=== PATIENT | male | born 1965 | race African-American/Black ===

== ENCOUNTER 2019-01-04 10:24 | Inpatient (IN) | payer MEDICAID ==
[~2019-01-04] VITALS: Ht 177.8 cm; Wt 91.4 kg
[2019-01-04] MEDS ORDERED: VANCOMYCIN 1 G PREMIX 200 ML IV ONE (11:30)
[2019-01-04] MEDS ORDERED: LEVOFLOXACIN 750MG PREMIX 150 ML IV ONE (11:30)
[2019-01-04] MEDS ORDERED: SODIUM CHLORIDE 0.9% 1,000 ML IV ONE (11:45)
[2019-01-04 12:01] LABS: BASOPHILS % 0.8 % (0.0-2.0); EOSINOPHILS % 2.1 % (0.0-5.0); HEMATOCRIT. 32.9 % (42.0-52.0); HEMOGLOBIN. 10.7 g/dL (14.0-18.0); LYMPHOCYTES % 25.3 % (20.0-50.0); MEAN CORPUSCULAR VOLUME 67.9 fL (80.0-94.0); MEAN PLATELET VOLUME 8.5 fl (7.4-10.4); MONOCYTES % 7.7 % (2.0-8.0); NEUTROPHILS % 64.1 % (40.0-76.0); PLATELET 440 x1000/uL (130-400); RED BLOOD CELL COUNT 4.85 mill/uL (4.7-6.1); RED CELL DISTRIBUTION WIDTH 14.3 % (11.6-14.6)
[2019-01-04 12:09] LABS: PROTHROMBIN TIME 9.9 sec (9.6-11.0)
[2019-01-04 12:10] LABS: CHLORIDE 99 mEq/L (98-107)
[2019-01-04 12:15] LABS: ETHANOL BLOOD < 10 mg/dL
[2019-01-04 12:18] LABS: BETA HYDROXYBUTYRATE 0.1 mMol/L (0.0-0.3)
[2019-01-04 13:13] LABS: CLARITY URINE CLEAR (CLEAR); COLOR URINE YELLOW (YELLOW); KETONES URINE NEGATIVE (NEGATIVE); LEUKOCYTE ESTERASE URINE NEGATIVE (NEGATIVE); NITRITE URINE NEGATIVE (NEGATIVE); OCCULT BLOOD URINE NEGATIVE (NEGATIVE); PH URINE 5.5 (4.5-8.0); PROTEIN URINE 2+ (NEGATIVE); SPECIFIC GRAVITY URINE 1.032 (1.005-1.030); UROBILINOGEN URINE 0.2 E.U./dL (0.2-1.0)
[2019-01-04 13:39] LABS: *AMPHETAMINES SCREEN URINE NEGATIVE (NEGATIVE); *BARBITURATES SCREEN URINE NEGATIVE (NEGATIVE); *BENZODIAZEPINES SCREEN URINE NEGATIVE (NEGATIVE)
[2019-01-04 13:40] LABS: *COCAINE SCREEN URINE NEGATIVE (NEGATIVE); CANNABINOID URINE SCREEN NEGATIVE (NEGATIVE); METHADONE URINE SCREEN NEGATIVE (NEGATIVE); OPIATES URINE SCREEN PRESUMTIVE POSITIVE (NEGATIVE); PHENCYCLIDINE URINE SCREEN NEGATIVE (NEGATIVE)
[2019-01-04] MEDS ORDERED: SODIUM CHLORIDE 0.9% 1000ML BAG (SEPSIS BOLUS) IV ONE (14:00)
[2019-01-04] MEDS ORDERED: ACETAMINOPHEN 325MG TABLET PO PRN (18:45)
[2019-01-04] MEDS ORDERED: HYDROMORPHONE HCL/PF 2MG/ML CPJ IV PRN (18:45)
[2019-01-04] MEDS ORDERED: VANCOMYCIN 1 G PREMIX 200 ML IV SCH (18:45)
[2019-01-04 20:00] VITALS: BP 158/96
[2019-01-04] MEDS ORDERED: DEXTROSE 50% WATER 50ML SYRINGE IV PRN (20:00)
[2019-01-04] MEDS ORDERED: INSULIN LISPRO 100 UNITS/ML SUBCUT SCH (21:00)
[2019-01-04] MEDS ORDERED: BLOOD SUGAR DIAGNOSTIC STRIP TEST SCH (21:00)
[2019-01-04 21:42] VITALS: BP 158/96
[2019-01-04] MEDS ORDERED: LOSARTAN POTASSIUM 50 MG TABLET PO NR (22:00)
[2019-01-04] MEDS ORDERED: INSU100I33 SQ (22:13)
[2019-01-04] MEDS ORDERED: METF-816 PO (22:13)
[2019-01-04] MEDS: SODIUM CHLORIDE 0.9% INJ 3ML FLUSH IVF SCH (22:24)
[2019-01-04] MEDS: PIPERACILLIN/TAZ 3.375G PREMIX 50 ML IV SCH (22:25)
[2019-01-05] VITALS: BP 156/99
[2019-01-05] MEDS: VANCOMYCIN 1 G PREMIX 200 ML IV SCH ×3 (00:32→22:12)
[2019-01-05 00:34] LABS: BASOPHILS % 0.9 % (0.0-2.0); EOSINOPHILS % 1.8 % (0.0-5.0); HEMATOCRIT. 32.1 % (42.0-52.0); HEMOGLOBIN. 10.4 g/dL (14.0-18.0); LYMPHOCYTES % 26.3 % (20.0-50.0); MEAN CORPUSCULAR HEMOGLOBIN 22.1 pg (28.0-32.0); MEAN CORPUSCULAR VOLUME 68.3 fL (80.0-94.0); MEAN PLATELET VOLUME 8.7 fl (7.4-10.4); MONOCYTES % 9.5 % (2.0-8.0); NEUTROPHILS % 61.5 % (40.0-76.0); PLATELET 348 x1000/uL (130-400); RED CELL DISTRIBUTION WIDTH 14.4 % (11.6-14.6)
[2019-01-05 01:02] LABS: CHLORIDE 105 mEq/L (98-107)
[2019-01-05 04:00] VITALS: BP 148/85
[2019-01-05] MEDS: PIPERACILLIN/TAZ 3.375G PREMIX 50 ML IV SCH ×3 (05:04→21:17)
[2019-01-05] MEDS: SODIUM CHLORIDE 0.9% INJ 3ML FLUSH IVF SCH ×3 (05:04→21:17)
[2019-01-05 08:00] VITALS: BP 148/90
[2019-01-05] MEDS: BLOOD SUGAR DIAGNOSTIC STRIP TEST SCH ×4 (08:03→21:17)
[2019-01-05] MEDS: INSULIN LISPRO 100 UNITS/ML SUBCUT SCH ×4 (08:09→21:18)
[2019-01-05] MEDS: ENOXAPARIN 30MG/0.3ML SYR SUBCUT SCH ×2 (08:10→21:16)
[2019-01-05] MEDS ORDERED: LOSARTAN POTASSIUM 50 MG TABLET PO SCH (09:00)
[2019-01-05 12:00] VITALS: BP 166/93
[2019-01-05 16:00] VITALS: BP 160/93
[2019-01-05 20:00] VITALS: BP 152/87
[2019-01-05] MEDS: INSULIN GLARGINE UD 100 UNITS/ML SYR SUBCUT SCH (21:18)
[2019-01-06] VITALS: BP 141/82
[2019-01-06] MEDS: PIPERACILLIN/TAZ 3.375G PREMIX 50 ML IV SCH ×4 (03:05→21:48)
[2019-01-06 04:00] VITALS: BP 133/83
[2019-01-06] MEDS: SODIUM CHLORIDE 0.9% INJ 3ML FLUSH IVF SCH ×3 (05:26→21:48)
[2019-01-06 08:09] VITALS: BP 133/80
[2019-01-06] MEDS: BLOOD SUGAR DIAGNOSTIC STRIP TEST SCH ×4 (08:34→20:35)
[2019-01-06] MEDS: LOSARTAN POTASSIUM 100 MG TABLET PO SCH (08:38)
[2019-01-06] MEDS: ENOXAPARIN 30MG/0.3ML SYR SUBCUT SCH ×2 (08:39→20:43)
[2019-01-06] MEDS: INSULIN LISPRO 100 UNITS/ML SUBCUT SCH ×4 (08:39→20:47)
[2019-01-06 09:04] LABS: HEMATOCRIT 32.5 % (42.0-52.0); HEMOGLOBIN 10.3 g/dL (14.0-18.0); MEAN CORPUSCULAR HEMOGLOBIN 21.8 pg (28.0-32.0); MEAN CORPUSCULAR VOLUME 69.1 fL (80.0-94.0); RED BLOOD CELL COUNT 4.71 mill/uL (4.7-6.1); RED CELL DISTRIBUTION WIDTH 14.3 % (11.6-14.6)
[2019-01-06 09:30] LABS: CHLORIDE 104 mEq/L (98-107)
[2019-01-06] MEDS: INSULIN GLARGINE UD 100 UNITS/ML SYR SUBCUT SCH ×2 (10:42→21:53)
[2019-01-06 11:48] VITALS: BP 178/91
[2019-01-06] MEDS: CLONIDINE 0.1MG TABLET PO PRN (12:24)
[2019-01-06] MEDS: VANCOMYCIN 1250MG in DEXTROSE 5% WATER 250ML IV SCH ×2 (12:24→20:43)
[2019-01-06 16:10] VITALS: BP 131/82
[2019-01-06 20:00] VITALS: BP 146/87
[2019-01-07] VITALS: BP 128/76
[2019-01-07] MEDS: PIPERACILLIN/TAZ 3.375G PREMIX 50 ML IV SCH ×4 (03:21→21:15)
[2019-01-07 04:00] VITALS: BP 125/78
[2019-01-07] MEDS: SODIUM CHLORIDE 0.9% INJ 3ML FLUSH IVF SCH ×3 (06:51→18:57)
[2019-01-07] MEDS: BLOOD SUGAR DIAGNOSTIC STRIP TEST SCH ×4 (08:05→21:14)
[2019-01-07 08:10] VITALS: BP 143/90
[2019-01-07] MEDS: LOSARTAN POTASSIUM 100 MG TABLET PO SCH (08:20)
[2019-01-07] MEDS: INSULIN LISPRO 100 UNITS/ML SUBCUT SCH ×4 (08:21→21:29)
[2019-01-07] MEDS: VANCOMYCIN 1250MG in DEXTROSE 5% WATER 250ML IV SCH ×2 (08:27→21:15)
[2019-01-07] MEDS: ENOXAPARIN 30MG/0.3ML SYR SUBCUT SCH ×2 (10:45→21:00)
[2019-01-07] MEDS: INSULIN GLARGINE UD 100 UNITS/ML SYR SUBCUT SCH ×2 (11:15→21:29)
[2019-01-07 11:24] VITALS: BP 157/93
[2019-01-07 16:33] VITALS: BP 159/92
[2019-01-07 20:00] VITALS: BP 158/93
[2019-01-08] VITALS (7 sets, daily range): BP systolic 126–154; BP diastolic 67–89
[2019-01-08] MEDS: PIPERACILLIN/TAZ 3.375G PREMIX 50 ML IV SCH ×3 (04:54→18:01)
[2019-01-08] MEDS: SODIUM CHLORIDE 0.9% INJ 3ML FLUSH IVF SCH ×3 (04:55→21:59)
[2019-01-08 06:51] LABS: BASOPHILS % 0.7 % (0.0-2.0); EOSINOPHILS % 1.4 % (0.0-5.0); HEMATOCRIT. 32.5 % (42.0-52.0); HEMOGLOBIN. 10.4 g/dL (14.0-18.0); LYMPHOCYTES % 15.8 % (20.0-50.0); MEAN CORPUSCULAR VOLUME 68.5 fL (80.0-94.0); MEAN PLATELET VOLUME 8.5 fl (7.4-10.4); NEUTROPHILS % 73.1 % (40.0-76.0); PLATELET 404 x1000/uL (130-400); RED BLOOD CELL COUNT 4.74 mill/uL (4.7-6.1); RED CELL DISTRIBUTION WIDTH 14.3 % (11.6-14.6)
[2019-01-08] MEDS: ENOXAPARIN 30MG/0.3ML SYR SUBCUT SCH ×2 (09:00→21:48)
[2019-01-08] MEDS: BLOOD SUGAR DIAGNOSTIC STRIP TEST SCH ×4 (09:37→21:00)
[2019-01-08] MEDS: LOSARTAN POTASSIUM 100 MG TABLET PO SCH (09:45)
[2019-01-08] MEDS: INSULIN LISPRO 100 UNITS/ML SUBCUT SCH ×4 (09:50→21:00)
[2019-01-08] MEDS: INSULIN GLARGINE UD 100 UNITS/ML SYR SUBCUT SCH ×2 (09:50→21:57)
[2019-01-08] MEDS ORDERED: GENTAMICIN SULF 40MG/ML 2ML VIAL ONE (12:04)
[2019-01-08] MEDS ORDERED: LIDOCAINE HCL 1% 20ML VIAL (Pyxis) INJ ONE (12:04)
[2019-01-08] MEDS ORDERED: BUPIVACAINE HCL/PF 0.5% (5MG/ML) 10ML ONE (12:05)
[2019-01-08] MEDS ORDERED: BACITRACIN 50,000 UNITS/VIAL ONE ×2 (12:05→12:16)
[2019-01-08] MEDS ORDERED: NORMAL SALINE 0.9% 10 ML SYR ONE ×2 (12:05→12:16)
[2019-01-08] MEDS ORDERED: SODIUM CHLORIDE 0.9% 1,000 ML IV SCH (12:15)
[2019-01-08] MEDS ORDERED: MIDAZOLAM HCL 2 MG/2 ML VIAL ONE ×2 (14:22→14:25)
[2019-01-08] MEDS ORDERED: PROPOFOL 200MG/20ML VIAL IV ONE (14:27)
[2019-01-08] MEDS ORDERED: BACITRACIN 15GM TUBE TOP ONE (14:42)
[2019-01-08] MEDS ORDERED: LABETALOL HCL 5MG/ML VIAL 20ML IV ONE (14:43)
[2019-01-08] MEDS ORDERED: SODIUM CHLORIDE 0.9% 1,000 ML IV ONE (14:55)
[2019-01-08] MEDS ORDERED: HYDROMORPHONE HCL/PF 2MG/ML CPJ IV PRN (15:00)
[2019-01-08] MEDS ORDERED: ONDANSETRON HCL 4MG/2ML INJ IV PRN (15:00)
[2019-01-08] MEDS ORDERED: MEPERIDINE HCL/PF 25MG/ML CPJ IV PRN (15:00)
[2019-01-08] MEDS: CLONIDINE 0.1MG TABLET PO PRN (15:34)
[2019-01-08] MEDS ORDERED: LABETALOL HCL 5MG/ML VIAL 20ML IV NR (16:15)
[2019-01-08] MEDS: PIPERACILLIN/TAZ 2.25G PREMIX 50 ML IV SCH (23:49)
[2019-01-09] VITALS (7 sets, daily range): BP systolic 124–161; BP diastolic 74–95
[2019-01-09] MEDS: PIPERACILLIN/TAZ 2.25G PREMIX 50 ML IV SCH ×4 (06:20→23:53)
[2019-01-09] MEDS: SODIUM CHLORIDE 0.9% INJ 3ML FLUSH IVF SCH ×3 (06:21→21:58)
[2019-01-09 07:20] LABS: BASOPHILS % 0.5 % (0.0-2.0); EOSINOPHILS % 1.9 % (0.0-5.0); HEMATOCRIT. 29.5 % (42.0-52.0); HEMOGLOBIN. 9.5 g/dL (14.0-18.0); LYMPHOCYTES % 13.6 % (20.0-50.0); MEAN CORPUSCULAR HEMOGLOBIN 21.8 pg (28.0-32.0); MEAN CORPUSCULAR VOLUME 67.6 fL (80.0-94.0); MEAN PLATELET VOLUME 8.2 fl (7.4-10.4); MONOCYTES % 8.7 % (2.0-8.0); NEUTROPHILS % 75.3 % (40.0-76.0); PLATELET 381 x1000/uL (130-400); RED BLOOD CELL COUNT 4.37 mill/uL (4.7-6.1); RED CELL DISTRIBUTION WIDTH 14.6 % (11.6-14.6)
[2019-01-09] MEDS: INSULIN LISPRO 100 UNITS/ML SUBCUT SCH ×4 (09:00→21:00)
[2019-01-09] MEDS: INSULIN GLARGINE UD 100 UNITS/ML SYR SUBCUT SCH ×2 (09:01→21:58)
[2019-01-09] MEDS: BLOOD SUGAR DIAGNOSTIC STRIP TEST SCH ×4 (09:02→21:55)
[2019-01-09] MEDS: ENOXAPARIN 30MG/0.3ML SYR SUBCUT SCH (09:02)
[2019-01-09] MEDS: LOSARTAN POTASSIUM 100 MG TABLET PO SCH (09:02)
[2019-01-09] MEDS ORDERED: SODIUM CHLORIDE 0.9% 1,000 ML IV SCH (18:00)
[2019-01-09] MEDS: CLONIDINE 0.1MG TABLET PO PRN (18:18)
[2019-01-09] MEDS: SODIUM CHLORIDE 0.9% 1,000 ML IV SCH ×2 (19:36→23:59)
[2019-01-09] MEDS: AMLODIPINE 10MG TABLET PO SCH (19:36)
[2019-01-09] MEDS ORDERED: VANCOMYCIN 1250MG in DEXTROSE 5% WATER 250ML IV SCH (21:00)
[2019-01-10] VITALS: BP 132/83
[2019-01-10 04:00] VITALS: BP 137/80
[2019-01-10] MEDS: SODIUM CHLORIDE 0.9% INJ 3ML FLUSH IVF SCH ×3 (05:26→21:05)
[2019-01-10] MEDS: PIPERACILLIN/TAZ 2.25G PREMIX 50 ML IV SCH ×4 (05:26→23:37)
[2019-01-10] MEDS: INSULIN LISPRO 100 UNITS/ML SUBCUT SCH ×4 (06:52→20:44)
[2019-01-10] MEDS: BLOOD SUGAR DIAGNOSTIC STRIP TEST SCH ×4 (06:52→20:43)
[2019-01-10 07:11] LABS: BASOPHILS % 0.3 % (0.0-2.0); EOSINOPHILS % 2.4 % (0.0-5.0); HEMATOCRIT. 30.1 % (42.0-52.0); HEMOGLOBIN. 9.5 g/dL (14.0-18.0); LYMPHOCYTES % 10.4 % (20.0-50.0); MEAN CORPUSCULAR HEMOGLOBIN 21.5 pg (28.0-32.0); MEAN PLATELET VOLUME 8.3 fl (7.4-10.4); MONOCYTES % 9.3 % (2.0-8.0); NEUTROPHILS % 77.6 % (40.0-76.0); PLATELET 410 x1000/uL (130-400); RED BLOOD CELL COUNT 4.43 mill/uL (4.7-6.1); RED CELL DISTRIBUTION WIDTH 14.4 % (11.6-14.6)
[2019-01-10 08:00] VITALS: BP 142/86
[2019-01-10 08:22] LABS: PHOSPHORUS 3.4 mg/dL (2.5-4.9)
[2019-01-10] MEDS: AMLODIPINE 10MG TABLET PO SCH (08:38)
[2019-01-10] MEDS: ENOXAPARIN 40MG/0.4ML SYR SUBCUT SCH (08:38)
[2019-01-10] MEDS: INSULIN GLARGINE UD 100 UNITS/ML SYR SUBCUT SCH ×2 (09:58→21:06)
[2019-01-10 12:00] VITALS: BP 133/80
[2019-01-10 16:00] VITALS: BP 151/89
[2019-01-10 20:00] VITALS: BP 145/89
[2019-01-10] MEDS: SODIUM CHLORIDE 0.9% 1,000 ML IV SCH (20:43)
[2019-01-11] VITALS: BP 139/82
[2019-01-11 04:00] VITALS: BP 147/80
[2019-01-11] MEDS: SODIUM CHLORIDE 0.9% INJ 3ML FLUSH IVF SCH ×3 (05:06→21:18)
[2019-01-11] MEDS: PIPERACILLIN/TAZ 2.25G PREMIX 50 ML IV SCH ×3 (05:06→20:50)
[2019-01-11 06:19] LABS: BASOPHILS % 0.4 % (0.0-2.0); HEMATOCRIT. 31.3 % (42.0-52.0); HEMOGLOBIN. 9.9 g/dL (14.0-18.0); LYMPHOCYTES % 15.2 % (20.0-50.0); MEAN CORPUSCULAR HEMOGLOBIN 21.8 pg (28.0-32.0); MEAN CORPUSCULAR VOLUME 68.6 fL (80.0-94.0); MEAN PLATELET VOLUME 8.4 fl (7.4-10.4); MONOCYTES % 9.7 % (2.0-8.0); NEUTROPHILS % 71.7 % (40.0-76.0); PLATELET 429 x1000/uL (130-400); RED BLOOD CELL COUNT 4.57 mill/uL (4.7-6.1); RED CELL DISTRIBUTION WIDTH 14.9 % (11.6-14.6)
[2019-01-11 06:25] LABS: PHOSPHORUS 3.2 mg/dL (2.5-4.9)
[2019-01-11 08:00] VITALS: BP 174/99
[2019-01-11 08:07] LABS: *CREATININE RANDOM URINE 69.2 mg/dL (Not Estab.); MICROALBUMIN RANDOM URINE 72.3 ug/mL (Not Estab.)
[2019-01-11] MEDS: INSULIN LISPRO 100 UNITS/ML SUBCUT SCH ×4 (09:00→20:51)
[2019-01-11] MEDS: BLOOD SUGAR DIAGNOSTIC STRIP TEST SCH ×4 (09:16→20:51)
[2019-01-11] MEDS: AMLODIPINE 10MG TABLET PO SCH (09:17)
[2019-01-11] MEDS: ENOXAPARIN 40MG/0.4ML SYR SUBCUT SCH (09:17)
[2019-01-11 12:00] VITALS: BP 163/86
[2019-01-11] MEDS: SODIUM CHLORIDE 0.9% 1,000 ML IV SCH (12:48)
[2019-01-11] MEDS: INSULIN GLARGINE UD 100 UNITS/ML SYR SUBCUT SCH ×2 (12:49→21:19)
[2019-01-11 16:00] VITALS: BP 157/96
[2019-01-11] MEDS ORDERED: HYDRALAZINE HCL 50MG TABLET PO SCH (16:00)
[2019-01-11 20:00] VITALS: BP 161/98
[2019-01-11] MEDS: HYDRALAZINE HCL 100MG TABLET PO SCH (20:51)
[2019-01-12] VITALS: BP 151/92
[2019-01-12] MEDS: PIPERACILLIN/TAZ 2.25G PREMIX 50 ML IV SCH ×2 (02:37→08:44)
[2019-01-12] MEDS: SODIUM CHLORIDE 0.9% 1,000 ML IV SCH ×2 (03:35→20:52)
[2019-01-12 04:00] VITALS: BP 143/87
[2019-01-12] MEDS: SODIUM CHLORIDE 0.9% INJ 3ML FLUSH IVF SCH ×3 (05:07→22:15)
[2019-01-12 05:57] LABS: BASOPHILS % 0.6 % (0.0-2.0); EOSINOPHILS % 3.8 % (0.0-5.0); HEMATOCRIT. 30.5 % (42.0-52.0); HEMOGLOBIN. 9.7 g/dL (14.0-18.0); MEAN CORPUSCULAR HEMOGLOBIN 21.4 pg (28.0-32.0); MEAN CORPUSCULAR VOLUME 67.6 fL (80.0-94.0); MEAN PLATELET VOLUME 8.3 fl (7.4-10.4); MONOCYTES % 9.7 % (2.0-8.0); NEUTROPHILS % 76.9 % (40.0-76.0); PLATELET 401 x1000/uL (130-400); RED BLOOD CELL COUNT 4.52 mill/uL (4.7-6.1); RED CELL DISTRIBUTION WIDTH 14.7 % (11.6-14.6)
[2019-01-12 06:24] LABS: PHOSPHORUS 3.3 mg/dL (2.5-4.9)
[2019-01-12 08:00] VITALS: BP 107/103
[2019-01-12] MEDS: AMLODIPINE 10MG TABLET PO SCH ×2 (08:21→20:46)
[2019-01-12] MEDS: HYDRALAZINE HCL 100MG TABLET PO SCH ×2 (08:21→20:46)
[2019-01-12] MEDS: INSULIN LISPRO 100 UNITS/ML SUBCUT SCH ×4 (08:42→20:47)
[2019-01-12] MEDS: BLOOD SUGAR DIAGNOSTIC STRIP TEST SCH ×4 (08:42→20:47)
[2019-01-12] MEDS: ENOXAPARIN 40MG/0.4ML SYR SUBCUT SCH (08:44)
[2019-01-12] MEDS: INSULIN GLARGINE UD 100 UNITS/ML SYR SUBCUT SCH ×2 (10:26→22:16)
[2019-01-12 12:30] VITALS: BP 169/101
[2019-01-12] MEDS: CLONIDINE 0.1MG TABLET PO PRN (13:06)
[2019-01-12] MEDS ORDERED: POTASSIUM CHLORIDE 20MEQ TABLET SR PO NR (15:45)
[2019-01-12 16:00] VITALS: BP 153/96
[2019-01-12] MEDS ORDERED: TETANUS, DIPHTHERIA, PERTUSSIS VAC/PF 0.5ML (>7YR OLD) IM ONE (16:00)
[2019-01-12] MEDS: CEFTRIAXONE 2 G in DEXTROSE 5% WATER 50 ML IV SCH (17:08)
[2019-01-12 20:00] VITALS: BP 168/96
[2019-01-13] VITALS: BP 132/78
[2019-01-13 04:00] VITALS: BP 144/93
[2019-01-13] MEDS: SODIUM CHLORIDE 0.9% INJ 3ML FLUSH IVF SCH ×3 (05:58→21:49)
[2019-01-13 08:00] VITALS: BP 146/90
[2019-01-13] MEDS: BLOOD SUGAR DIAGNOSTIC STRIP TEST SCH ×4 (08:48→21:00)
[2019-01-13] MEDS: INSULIN LISPRO 100 UNITS/ML SUBCUT SCH ×4 (08:49→22:29)
[2019-01-13] MEDS: HYDRALAZINE HCL 100MG TABLET PO SCH ×2 (08:50→21:48)
[2019-01-13] MEDS: ENOXAPARIN 40MG/0.4ML SYR SUBCUT SCH (08:51)
[2019-01-13] MEDS: CEFTRIAXONE 2 G in DEXTROSE 5% WATER 50 ML IV SCH (08:51)
[2019-01-13] MEDS: AMLODIPINE 10MG TABLET PO SCH ×2 (08:51→21:49)
[2019-01-13 09:30] LABS: BASOPHILS % 0.5 % (0.0-2.0); EOSINOPHILS % 3.3 % (0.0-5.0); HEMATOCRIT. 31.2 % (42.0-52.0); LYMPHOCYTES % 7.9 % (20.0-50.0); MEAN CORPUSCULAR HEMOGLOBIN 21.8 pg (28.0-32.0); MEAN CORPUSCULAR VOLUME 67.8 fL (80.0-94.0); MEAN PLATELET VOLUME 8.3 fl (7.4-10.4); MONOCYTES % 8.5 % (2.0-8.0); NEUTROPHILS % 79.8 % (40.0-76.0); PLATELET 478 x1000/uL (130-400); RED CELL DISTRIBUTION WIDTH 14.8 % (11.6-14.6)
[2019-01-13] MEDS: INSULIN GLARGINE UD 100 UNITS/ML SYR SUBCUT SCH ×2 (10:10→22:30)
[2019-01-13 12:00] VITALS: BP 142/91
[2019-01-13] MEDS: SODIUM CHLORIDE 0.45% 1,000 ML IV SCH (12:16)
[2019-01-13 16:00] VITALS: BP 152/96
[2019-01-13 20:00] VITALS: BP 163/96
[2019-01-13] MEDS: CARVEDILOL 3.125 MG TABLET PO SCH (21:48)
[2019-01-14] VITALS: BP 126/84
[2019-01-14 04:00] VITALS: BP 134/80
[2019-01-14] MEDS: SODIUM CHLORIDE 0.9% INJ 3ML FLUSH IVF SCH ×3 (07:05→21:49)
[2019-01-14] MEDS: SODIUM CHLORIDE 0.45% 1,000 ML IV SCH (07:15)
[2019-01-14 07:35] LABS: BASOPHILS % 0.5 % (0.0-2.0); HEMATOCRIT. 29.9 % (42.0-52.0); HEMOGLOBIN. 9.6 g/dL (14.0-18.0); LYMPHOCYTES % 9.6 % (20.0-50.0); MEAN CORPUSCULAR HEMOGLOBIN 21.6 pg (28.0-32.0); MEAN CORPUSCULAR VOLUME 67.3 fL (80.0-94.0); MEAN PLATELET VOLUME 8.3 fl (7.4-10.4); MONOCYTES % 9.1 % (2.0-8.0); NEUTROPHILS % 77.8 % (40.0-76.0); PLATELET 369 x1000/uL (130-400); RED BLOOD CELL COUNT 4.44 mill/uL (4.7-6.1); RED CELL DISTRIBUTION WIDTH 14.6 % (11.6-14.6)
[2019-01-14 07:55] VITALS: BP 139/91
[2019-01-14] MEDS: BLOOD SUGAR DIAGNOSTIC STRIP TEST SCH ×4 (08:44→21:44)
[2019-01-14] MEDS: INSULIN LISPRO 100 UNITS/ML SUBCUT SCH ×4 (08:45→21:00)
[2019-01-14] MEDS: CARVEDILOL 3.125 MG TABLET PO SCH ×2 (08:53→21:47)
[2019-01-14] MEDS: AMLODIPINE 10MG TABLET PO SCH ×2 (08:53→21:47)
[2019-01-14] MEDS: HYDRALAZINE HCL 100MG TABLET PO SCH ×2 (08:53→21:48)
[2019-01-14] MEDS: ENOXAPARIN 40MG/0.4ML SYR SUBCUT SCH (08:54)
[2019-01-14] MEDS: CEFTRIAXONE 2 G in DEXTROSE 5% WATER 50 ML IV SCH (08:54)
[2019-01-14] MEDS: INSULIN GLARGINE UD 100 UNITS/ML SYR SUBCUT SCH ×2 (09:10→21:49)
[2019-01-14 11:41] VITALS: BP 132/74
[2019-01-14 16:00] VITALS: BP 151/89
[2019-01-14 20:00] VITALS: BP 150/92
[2019-01-15] VITALS: BP 121/74
[2019-01-15 04:00] VITALS: BP 122/80
[2019-01-15] MEDS: SODIUM CHLORIDE 0.9% INJ 3ML FLUSH IVF SCH ×2 (05:40→17:25)
[2019-01-15 06:32] LABS: BASOPHILS % 0.7 % (0.0-2.0); EOSINOPHILS % 4.1 % (0.0-5.0); HEMATOCRIT. 29.2 % (42.0-52.0); HEMOGLOBIN. 9.4 g/dL (14.0-18.0); LYMPHOCYTES % 11.8 % (20.0-50.0); MEAN CORPUSCULAR HEMOGLOBIN 21.5 pg (28.0-32.0); MEAN CORPUSCULAR VOLUME 66.8 fL (80.0-94.0); MEAN PLATELET VOLUME 8.3 fl (7.4-10.4); MONOCYTES % 10.6 % (2.0-8.0); NEUTROPHILS % 72.8 % (40.0-76.0); PLATELET 441 x1000/uL (130-400); RED BLOOD CELL COUNT 4.36 mill/uL (4.7-6.1); RED CELL DISTRIBUTION WIDTH 14.6 % (11.6-14.6)
[2019-01-15 06:47] LABS: PHOSPHORUS 3.3 mg/dL (2.5-4.9)
[2019-01-15 08:00] VITALS: BP 119/79
[2019-01-15] MEDS: AMLODIPINE 10MG TABLET PO SCH (08:46)
[2019-01-15] MEDS: CEFTRIAXONE 2 G in DEXTROSE 5% WATER 50 ML IV SCH (08:46)
[2019-01-15] MEDS: HYDRALAZINE HCL 100MG TABLET PO SCH (08:46)
[2019-01-15] MEDS: CARVEDILOL 3.125 MG TABLET PO SCH (08:47)
[2019-01-15] MEDS: BLOOD SUGAR DIAGNOSTIC STRIP TEST SCH ×3 (08:48→17:23)
[2019-01-15] MEDS: ENOXAPARIN 40MG/0.4ML SYR SUBCUT SCH (08:48)
[2019-01-15] MEDS: INSULIN LISPRO 100 UNITS/ML SUBCUT SCH ×3 (08:48→17:00)
[2019-01-15] MEDS: INSULIN GLARGINE UD 100 UNITS/ML SYR SUBCUT SCH (09:03)
[2019-01-15] MEDS ORDERED: POTASSIUM CHLORIDE 20MEQ TABLET SR PO SCH (09:30)
[2019-01-15 12:00] VITALS: BP 123/71
[2019-01-15 14:58] LABS: PLATELET ESTIMATE INCREASED
[2019-01-15 16:00] VITALS: BP 148/90
[2019-01-15 16:29] VITALS: BP 148/92
== END 2019-01-15 18:05 | disposition home health service (06) | DRG 710 ==
LOC: ER 10:24 → 5WST 15:54 → EDBEDREQ 15:55 → EDBEDREQTM 15:55 → ENRESERV 16:23
PROVIDERS: ADMIT Ophthalmology; ATTEND Ophthalmology
PROC: 02HV33Z Insertion of Infusion Device into Superior Vena Cava, Percutaneous Approach (ICD-10-PCS; principal; 2019-01-07)
PROC: B548ZZA Ultrasonography of Superior Vena Cava, Guidance (ICD-10-PCS; 2019-01-07)
PROC: B5181ZA Fluoroscopy of Superior Vena Cava using Low Osmolar Contrast, Guidance (ICD-10-PCS; 2019-01-07)
PROC: 0QBQ0ZZ Excision of Right Toe Phalanx, Open Approach (ICD-10-PCS; 2019-01-08)
DX: A41.9 Sepsis, unspecified organism (principal); E11.22 Type 2 diabetes mellitus with diabetic chronic kidney disease; E11.40 Type 2 diabetes mellitus with diabetic neuropathy, unspecified; N17.9 Acute kidney failure, unspecified; I12.0 Hypertensive chronic kidney disease with stage 5 chronic kidney disease or end stage renal disease; E11.52 Type 2 diabetes mellitus with diabetic peripheral angiopathy with gangrene; N18.6 End stage renal disease; M86.8X7 Other osteomyelitis, ankle and foot; E11.65 Type 2 diabetes mellitus with hyperglycemia; E11.621 Type 2 diabetes mellitus with foot ulcer; L97.519 Non-pressure chronic ulcer of other part of right foot with unspecified severity; D64.9 Anemia, unspecified; B95.1 Streptococcus, group B, as the cause of diseases classified elsewhere; E11.69 Type 2 diabetes mellitus with other specified complication; L02.611 Cutaneous abscess of right foot; M19.90 Unspecified osteoarthritis, unspecified site; Z79.4 Long term (current) use of insulin; Z83.3 Family history of diabetes mellitus; Z99.2 Dependence on renal dialysis
CPT/HCPCS: 36415; 36573; 71045; 73620; 73721; 76770; 80048; 80202; 80305; 80320; 82010; 82043; 82570; 82962; 83036; 83540; 83550; 83605; 83735; 83935; 84100; 84145; 84300; 85027; 85651; 87070; 87075; 87077; 88304; 90715; 93005; 96365; 97022; 97162; 99291; C1725; J0696; J1580; J1650; J1815; J1956; J2250; J2543; J2704; J3370; J3490; J7030; J7040; J7050; J7060; G0480

== ENCOUNTER 2021-09-07 08:12 | Emergency (ER) | payer MEDICARE, MEDICAID ==
[~2021-09-07] VITALS: Ht 177.8 cm; Wt 107.0 kg
[~2021-09-07 08:12] MED LIST: INSU100I33 SQ; METF-874 PO
[2021-09-07 08:13] VITALS: BP 183/124
[2021-09-07] MEDS ORDERED: FLUORESCEIN SODIUM 1MG/STRIP RIGHTEYE ONE (08:45)
[2021-09-07] MEDS ORDERED: OFLO5DRO3 RIGHTEYE ×3 (09:27→09:30)
== END 2021-09-07 09:48 | disposition home or self-care (01) ==
LOC: ER 08:12
DX: S05.01XA Injury of conjunctiva and corneal abrasion without foreign body, right eye, initial encounter (principal); E11.9 Type 2 diabetes mellitus without complications; I10 Essential (primary) hypertension; Z79.4 Long term (current) use of insulin; X58.XXXA Exposure to other specified factors, initial encounter; Y93.89 Activity, other specified; Y92.013 Bedroom of single-family (private) house as the place of occurrence of the external cause
CPT/HCPCS: 99283

== ENCOUNTER 2023-03-12 23:10 | Emergency (ER) | payer MEDICARE, MEDICAID ==
[~2023-03-12] VITALS: Ht 177.8 cm; Wt 102.0 kg
[~2023-03-12 23:10] MED LIST changes: +OCUFLX RIGHTEYE
[2023-03-12 23:15] VITALS: PULSE 111
[2023-03-12] MEDS ORDERED: KETOROLAC 60MG/2ML VIAL IM ONE (23:30)
[2023-03-12 23:51] VITALS: BP 227/123; RESP 18; TEMP 98.3; O2SAT 99
[2023-03-13] MEDS ORDERED: IBUP-2028 PO (01:56)
[2023-03-13] MEDS ORDERED: T3 PO (01:56)
[2023-03-13] MEDS ORDERED: KETOROLAC 60MG/2ML VIAL IM NR (03:00)
== END 2023-03-13 03:33 | disposition home or self-care (01) ==
LOC: ER 23:56
DX: M25.552 Pain in left hip (principal); E11.9 Type 2 diabetes mellitus without complications; I10 Essential (primary) hypertension
CPT/HCPCS: 99283; 73501; 96372; J1885

== ENCOUNTER 2023-07-27 22:24 | Emergency (ER) | payer MEDICARE, MEDICAID ==
[~2023-07-27] VITALS: Ht 177.8 cm; Wt 101.0 kg
[~2023-07-27 22:24] MED LIST changes: +IBUP-2028 PO; +T3 PO
[2023-07-27 22:48] VITALS: O2SAT 96
[2023-07-28 00:01] LABS: BASOPHILS % 0.6 % (0.0-2.0); EOSINOPHILS % 3.7 % (0.0-5.0); HEMATOCRIT. 36.2 % (42.0-52.0); HEMOGLOBIN. 11.7 g/dL (14.0-18.0); LYMPHOCYTES % 23.1 % (20.0-50.0); MEAN CORPUSCULAR HEMOGLOBIN 22.3 pg (28.0-32.0); MEAN CORPUSCULAR HGB CONC 32.3 g/dL (31.0-37.0); MEAN CORPUSCULAR VOLUME 69.1 fL (80.0-94.0); MONOCYTES % 6.7 % (2.0-8.0); NEUTROPHILS % 65.9 % (40.0-76.0); PLATELET 300 x1000/uL (130-400); RED BLOOD CELL COUNT 5.23 mill/uL (4.7-6.1); RED CELL DISTRIBUTION WIDTH 15.7 % (11.6-14.6); WHITE BLOOD COUNT 10.6 x1000/uL (4.5-11.0)
[2023-07-28 00:06] LABS: ADD RBC MORPHOLOGY YES; DIFFERENTIAL COMMENT 1
[2023-07-28 00:12] LABS: ALANINE AMINOTRANSFERASE 12 IU/L (10-49); ALBUMIN 4.1 g/dL (3.2-4.8); ASPARTATE AMINOTRANSFERASE 17 IU/L (<34); BILIRUBIN TOTAL 0.3 mg/dL (0.1-1.0); CALCIUM 8.9 mg/dL (8.7-10.4); CARBON DIOXIDE 24 mEq/L (21-32); CHLORIDE 106 mEq/L (98-107); CREATININE 1.7 mg/dL (0.6-1.3); POTASSIUM 3.9 mEq/L (3.5-5.1); PROTEIN TOTAL 7.8 g/dL (6.0-8.3); SODIUM 139 mEq/L (136-145); UREA NITROGEN BLOOD 23 mg/dL (9-23)
[2023-07-28 00:17] LABS: GLUCOSE 229 mg/dL (70-105)
[2023-07-28 00:43] LABS: HYPOCHROMASIA 1+; MICROCYTOSIS 1+; PLATELET ESTIMATE NORMAL
[2023-07-28 00:56] VITALS: TEMP 98.4
[2023-07-28] MEDS ORDERED: MUPI1OIN4 TP (01:29)
[2023-07-28] MEDS ORDERED: LOSARTAN 100 MG TABLET PO ONE (01:30)
[2023-07-28] MEDS: LOSARTAN 50 MG TABLET PO NR (01:40)
[2023-07-28 02:25] VITALS: BP 177/111; PULSE 98; RESP 14
== END 2023-07-28 02:38 | disposition home or self-care (01) ==
LOC: ER 22:24
DX: S90.411A Abrasion, right great toe, initial encounter (principal); I10 Essential (primary) hypertension; E11.9 Type 2 diabetes mellitus without complications; Z98.890 Other specified postprocedural states; W26.8XXA Contact with other sharp object(s), not elsewhere classified, initial encounter; Y93.89 Activity, other specified; Y92.89 Other specified places as the place of occurrence of the external cause; Y99.8 Other external cause status
CPT/HCPCS: 36415; 80053; 82962; 85025; 99282; 99283